=== PATIENT | female | born 1970 | race Caucasian/White ===

== ENCOUNTER 2022-02-12 11:04 | Emergency (ER) | payer SELFPAY ==
[~2022-02-12] VITALS: Ht 160 cm; Wt 61.0 kg
[2022-02-12 11:09] VITALS: BP 134/76
== END 2022-02-12 11:22 | disposition left against medical advice (07) ==
LOC: ER 11:15
DX: Z53.21 Procedure and treatment not carried out due to patient leaving prior to being seen by health care provider (principal)